=== PATIENT | female | born 1950 | race Caucasian/White ===

== ENCOUNTER 2021-09-18 11:28 | Emergency (ER) | payer MEDICARE ==
[~2021-09-18] VITALS: Ht 165.1 cm; Wt 54.4 kg
[2021-09-18] MEDS ORDERED: AMLODIPINE BES2.5 MG PO (12:20)
[2021-09-18] MEDS ORDERED: COZAAR100 MG PO (12:22)
[2021-09-18] MEDS ORDERED: ATORVASTATIN CA10 MG PO (12:23)
[2021-09-18] MEDS ORDERED: DOCUPRENE100 MG PO (12:23)
[2021-09-18] MEDS ORDERED: ZYPREXA10 MG PO (12:23)
[2021-09-18] MEDS ORDERED: VALACYCLOVIR1000 MG PO (12:46)
[2021-09-18] MEDS ORDERED: HYDROCODON-ACE1 EA10 PO (12:47)
== END 2021-09-18 13:11 | disposition home or self-care (01) ==
LOC: ED 11:28
DX: B02.9 Zoster without complications (principal); I10 Essential (primary) hypertension; Z88.2 Allergy status to sulfonamides; Z88.0 Allergy status to penicillin; Z88.8 Allergy status to other drugs, medicaments and biological substances; Z79.899 Other long term (current) drug therapy
CPT/HCPCS: 99282

== ENCOUNTER 2021-09-20 09:01 | Emergency (ER) | payer MEDICARE ==
[~2021-09-20] VITALS: Ht 165.1 cm; Wt 54.4 kg
[~2021-09-20 09:01] MED LIST: AMLODIPINE BES2.5 MG PO; ATORVASTATIN CA10 MG PO; COZAAR100 MG PO; DOCUPRENE100 MG PO; HYDROCODON-ACE1 EA10 PO; VALACYCLOVIR1000 MG PO; ZYPREXA10 MG PO
--- OUTSIDE RECORDS SUMMARY | 2021-09-20 09:08 | XMS ---
PreManage Notification: PURVI BRANDT Security Pond Tender Events No recent Security Events currently on file CRITERIA MET - [facility] - 2 Visits in 30 Days CARE PROVIDERS There are no care providers on record at this time. Leslie has no Care Guidelines for this patient. Gigi VISIT COUNT (12 MO.) 2 [facility] [place] [facility] TOTAL 2 NOTE: Visits indicate total known visits. [place] [place] (12 MO[place] 09/20/2021 09:[address] [facility] [place] TYPE: Emergency COMPLAINT: - FACIAL RASH 09/18/2021 11:29 [facility] [place] TYPE: Emergency COMPLAINT: - FACIAL RASH/BLISTERS INPATIENT VISIT TRACKING (12 MO.) No inpatient visits to display in this time frame [email or web address]
[2021-09-20] MEDS ORDERED: ONDANSETRON ODT8 MG PO (10:58)
== END 2021-09-20 11:10 | disposition home or self-care (01) ==
LOC: ED 09:01
DX: B02.9 Zoster without complications (principal); I10 Essential (primary) hypertension; Z88.2 Allergy status to sulfonamides; Z88.0 Allergy status to penicillin; Z88.8 Allergy status to other drugs, medicaments and biological substances; Z79.899 Other long term (current) drug therapy
CPT/HCPCS: 99283